=== PATIENT | female | born 1980 | race Caucasian/White ===

== ENCOUNTER 2018-02-24 18:01 | Observation (INO) | END 2018-02-25 14:55 | disposition home or self-care (01) ==

== ENCOUNTER 2018-11-27 15:54 | Emergency (ER) | payer MEDICAID ==
[~2018-11-27] VITALS: Ht 157.5 cm; Wt 63.5 kg
[2018-11-27 15:57] VITALS: Ht 157.5 cm; Wt 63.5 kg
--- NOTE | 2018-11-27 17:48 | ERD ---
ER Documentation Chief Complaint Chief Complaint RIGHT LOWER QUADRANT PAIN HPI Patient is a 38 years old female with no known past medical history presenting to the clinic for severe left inguinal pain since yesterday. Patient reports pain came about suddenly and is worse with defecation, flexion of abdomen, and sitting position. Patient reports lying down eases the pain. Patient admits to taking [id number] ibuprofen with some mild resolution. Patient reports today is her LMP and admits to tubal ligation 2 years ago. Patient denies fever, chills, emesis, dizziness, nausea, constipation, hematochezia, melena, and urinary symptoms. ROS All systems reviewed and are negative except as per history of present illness. Medications Home Meds Active Scripts Phenazopyridine Hcl* (Pyridium*) 100 Mg Tab, 100 MG PO TID PRN for URINARY PAIN, #8 TAB Prov:THOR PITTMAN PA-C 11/27/18 Nitrofurantoin Monohyd Macrocr* (Macrobid*) 100 Mg Capsr, 100 MG PO HS for 7 Days, CAP Prov:THOR PITTMAN PA-C 11/27/18 Allergies Allergies: Coded Allergies: No Known Allergy (Unverified , 02/24/18) PMhx/Soc Tubal ligation 2 years ago (2016). Medical and Surgical Hx: pt denies Medical Hx History of Surgery: No Anesthesia Reaction: No Hx Neurological Disorder: No Hx Respiratory Disorders: No Hx Cardiac Disorders: No Hx Psychiatric Problems: No Hx Miscellaneous Medical Probl: No Hx Alcohol Use: No Hx Substance Use: No Hx Tobacco Use: No FmHx Family History: No diabetes, No coronary disease, No other Physical Exam Vitals Vital Signs Date Temp Pulse Resp B/P (MAP) Pulse Ox O2 O2 Flow FiO2 Time Delivery Rate 11/27/18 97.6 75 18 108/66 97 Room Air 18:03 (80) 11/27/18 81 19 98/63 (75) 99 15:57 Physical Exam Const: Mild distress lying on the stretcher covering her left lower quadrant with her right hand. Head: Atraumatic Eyes: Normal Conjunctiva Resp: Clear to auscultation bilaterally Cardio: Regular rate and rhythm, no murmurs Abd: Soft, non distended. Normal bowel sounds. Severe tenderness to light palpation on left inguinal region. Skin: No petechiae or rashes Back: No midline or flank tenderness Neur: Awake and alert Psych: Normal Mood and Affect Results 24 hrs Laboratory Tests Test 11/27/18 17:58 11/27/18 18:02 Urine Color YELLOW Urine Clarity CLEAR Urine pH 7.0 Urine Specific [place] 1.013 Urine Ketones NEGATIVE mg/dL Urine Nitrite NEGATIVE mg/dL Urine Bilirubin NEGATIVE mg/dL Urine Urobilinogen NEGATIVE mg/dL Urine Leukocyte Esterase 2+ Cheryl/ul Urine Microscopic RBC 1 /HPF Urine Microscopic WBC 1 /HPF Urine Hemoglobin NEGATIVE mg/dL Urine Glucose NEGATIVE mg/dL Urine Total Protein NEGATIVE mg/dl POC Beta HCG, Qualitative NEGATIVE Current Medications Medications Dose Sig/Lazaro Start Time Status Last (Trade) Ordered Route PRN Stop Time Admin Dose Reason Admin 1 tab ONCE ONCE 11/27/18 DC 11/27/18 Acetaminophen PO 18:00 18:03 / 11/27/18 18:01 Hydrocodone Bitart (Hope (5/325)) Procedures/MDM Patient was seen and evaluated for left inguinal pain. Possible differential diagnosis includes UTI, ectopic , colitis, PCOS, Fibroids. Sepsis is least likely on the differential diagnosis as patient is stable otherwise. Ultrasound is unremarkable. Urine is negative, urinalysis shows leukocyte esterase which is significant for UTI. Departure Diagnosis: Primary Impression: UTI (urinary tract infection) Urinary tract infection type: acute cystitis Hematuria presence: without hematuria Qualified Codes: N30.00 - Acute cystitis without hematuria Condition: Stable Patient Instructions: Understanding Urinary Tract Infections (UTIs) Referrals: [facility] Additional Instructions: Paciente aconseja volver a Departamento de urgencias inmediatamente para sntomas nuevos o que empeoran . Paciente aconseja posteriores con el PCP en 2-3 corrales . Paciente verbaliza la comprehensin y est de acuerdo con el tratamiento y el curso de accin. Si el paciente no tiene ninguna de atencin primaria pueden seguir con [facility] [address] [place] [address] [facility] + [address] [address] THOR PITTMAN PA-C November 27, 2018 17:48
[2018-11-27] MEDS ORDERED: HYDROCODONE/APAP (5/325) TAB PO ONE (18:00)
[2018-11-27] MEDS ORDERED: PHEN-537 PO (19:18)
[2018-11-27] MEDS ORDERED: NITR-58 PO (19:18)
[2018-11-27 20:04] VITALS: BP 113/55; PULSE 77; RESP 18
== END 2018-11-27 20:05 | disposition home or self-care (01) ==
LOC: FTE 15:54
DX: N30.00 Acute cystitis without hematuria (principal); R10.2 Pelvic and perineal pain
CPT/HCPCS: 76830; 76856; 81001; 81025; Z7610